=== PATIENT | male | born 1940 | race Caucasian/White ===

== ENCOUNTER → 2016-06-09 | Outpatient (CLI) | payer OTHER ==
[~2016-06-09] MED LIST: ACET1TAB84 PO; CRS10 PO; GEMF600T3 PO; HYD50 PO; LISI-725 PO; NIAC500T11 PO; POTA-335 PO; TRAM-10 PO
[2016-06-09 13:19] LABS: HEMATOCRIT 47.9 % (42-52); MEAN CELL VOLUME 92.1 fL (80-100); MEAN CORPUSCULAR HEMOGLOBIN 31.2 pg (25-34); MEAN CORPUSCULAR HGB CONC 33.8 g/dl (32-36); MEAN PLATELET VOLUME 9.1 fL (7.4-10.4); PLATELET COUNT 253 K/uL (130-400); WHITE BLOOD COUNT 7.11 K/uL (4.8-10.8)
[2016-06-09 13:27] LABS: CALCIUM 9.6 mg/dl (8.5-10.1)
[2016-06-09 13:38] LABS: ALT/SGPT 26 U/L (12-78); AMYLASE 42 U/L (25-115); BLOOD UREA NITROGEN 26 mg/dl (7-18); BUN/CREATININE RATIO 23.8 (10-20); CARBON DIOXIDE 27 mmol/L (21-32); CHLORIDE 108 mmol/L (98-107); GLUCOSE 105 mg/dl (70-99); POTASSIUM 4.2 mmol/L (3.5-5.1); SODIUM 142 mmol/L (136-145)
[2016-06-09 13:44] LABS: ALB/GLOB RATIO 1.2 (0.9-2); ALKALINE PHOSPHATASE 80 U/L (45-117); AST/SGOT 19 U/L (15-37); PROSTATE SPECIFIC ANTIGEN 0.451 ng/ml (0.000-4.000)
== END | disposition home or self-care (01) ==
LOC: C.LABMFLN 12:01
PROVIDERS: ATTEND Family Medicine
DX: M54.6 Pain in thoracic spine (principal); Z12.5 Encounter for screening for malignant neoplasm of prostate

== ENCOUNTER → 2016-07-15 | Outpatient (CLI) | payer OTHER ==
--- NOTE | 2016-07-15 12:02 | DIAGNOSTIC IMAGING REPORT ---
CT SCAN OF THE THORACIC SPINE WITHOUT IV CONTRAST CLINICAL HISTORY: Thoracic back pain. Degenerative disc disease. COMPARISON STUDY: CT scan of the chest dated 12/15/2015. TECHNIQUE: CT scan of the thoracic spine is performed from the lower cervical spine to the upper lumbar spine. Images are reviewed in the axial, sagittal, and coronal planes. IV contrast was not imaged for this examination. CT DOSE: 688.65 mGy.cm FINDINGS: The skeletal structures are osteopenic. There is no evidence of fracture or malalignment involving the thoracic spine. Vertebral body height and alignment are maintained. Tiny anterior osteophytes are seen throughout. The transverse and spinous processes are intact. No lytic or blastic lesions are seen. Fusion hardware is partially imaged in the lower cervical spine. Mild multilevel degenerative disc space narrowing is seen at all levels. There is a large posterior disc-osteophyte complex at T8-T9. This causes moderate to severe central canal stenosis at this level. The minimum AP canal diameter measures 5 mm at this level. Tiny posterior disc-osteophyte complexes are seen at C7-T1, T1-T2, T2-T3, and T6-T7. No significant neural foraminal narrowing is seen throughout the thoracic spine. The paraspinous soft tissues are normal as visualized. There is advanced atherosclerotic calcification of the thoracic aorta. A 5 cm cyst is partially imaged in the upper pole of the right kidney. Subcentimeter left renal cysts are suggested. There is a 2.0 cm nodular lesion partially visualized at the posterior right lung base on image number 351. Additionally, there is a 5 mm right upper lobe nodule seen on image number 131. These lesions were not present on the 12/15/[address] The posterior ribs are intact as imaged. A mildly enlarged mediastinal lymph node measures 12 mm in short axis as seen on image number 144. An enlarged subcarinal node on image number 225 measures 1.7 cm in short axis. IMPRESSION: 1. There is a 2.0 cm nodular lesion partially imaged at the posterior right lung base. Additionally, there is an irregular 5 mm right upper lobe pulmonary nodule. These are new from the 12/15/[address] Although these could be on an infectious/inflammatory basis, neoplasm is the diagnosis of exclusion. Followup with a dedicated chest CT is recommended for further assessment. 2. There are mildly enlarged mediastinal lymph nodes. These are also new from previous. 3. There is no evidence of fracture or malalignment involving the thoracic spine. 4. A large posterior disc-osteophyte complex at T8-T9. This causes moderate to severe central canal stenosis at this level. 5. Mild degenerative change is seen at the remaining thoracic levels. See discussion. Dictated: 07/15/2016 11:21 AM Transcribed: 07/15/2016 12:01 PM [email or web address] Electronically signed by: Fantasma Sousa M.D. 07/15/2016 12:10 PM Dictated Date/Time: 07/15/2016 11:21 AM
== END | disposition home or self-care (01) ==
LOC: C.CTS 10:59
PROVIDERS: ATTEND Family Medicine
DX: M51.34 Other intervertebral disc degeneration, thoracic region (principal); R91.1 Solitary pulmonary nodule; M25.78 Osteophyte, vertebrae; M48.04 Spinal stenosis, thoracic region

== ENCOUNTER → 2016-07-19 | Outpatient (CLI) | payer OTHER ==
[~2016-07-19] MED LIST changes: +OPTIRAY 320 IV PRN
--- NOTE | 2016-07-19 09:42 | DIAGNOSTIC IMAGING REPORT ---
CHEST CT WITH CONTRAST CT DOSE: 433.32 mGy.cm HISTORY: R91.8 Right lower lobe lung [id number] TECHNIQUE: Multiaxial CT images of the chest were performed following the intravenous administration of contrast. COMPARISON: Thoracic spine CT 07/15/2016. Chest CT 12/15/2015. FINDINGS: The central airways are patent. No pleural effusions. No pneumothorax. A 2 mm nodule within the left upper lobe on image 80. Stable 3 mm nodule within the right upper lobe on image 70. Focal round area of peripheral consolidation within the right lower lobe posteriorly. This measures approximately 1.9 cm and is similar to the prior study. This demonstrates a groundglass halo. The central pulmonary arteries are patent. No pleural effusions. No pneumothorax. Mild to moderate calcified plaque within the aortic arch. Normal caliber thoracic aorta. Cholecystectomy. Multiple bilateral renal hypodense lesions consistent with cysts. Stable small nodules within the left adrenal gland. Stable 1 cm hypodense lesion within the left hepatic lobe. This favors a cyst. No fractures within the visualized osseous structures. Partially visualized cervical spinal fusion hardware. Mediastinal lymph nodes have slightly decreased in size. Dominant subcarinal lymph node measures 1.4 cm in short axis diameter. IMPRESSION: 1. No significant change in 1.9 cm focal round area of peripheral consolidation within the right lower lobe posteriorly. This demonstrates a groundglass halo and is new from the [address] This favors a small focus of infectious change/pneumonia. One month chest CT follow up is recommended to exclude a neoplastic process. 2. Improvement in the prominent mediastinal lymph nodes. 3. A few additional subcentimeter nodules within the lungs as described above. These also bear watching on future examinations. Electronically signed by: Gabriel Mckenna M.D. 07/19/2016 9:41 AM Dictated Date/Time: 07/19/2016 9:32 AM
== END | disposition home or self-care (01) ==
LOC: C.CTS 08:57
PROVIDERS: ATTEND Family Medicine
DX: R91.8 Other nonspecific abnormal finding of lung field (principal); R59.1 Generalized enlarged lymph nodes

== ENCOUNTER → 2016-08-15 | Outpatient (CLI) | payer OTHER ==
[~2016-08-15] MED LIST changes: -OPTIRAY 320 IV PRN
--- NOTE | 2016-08-16 08:26 | DIAGNOSTIC IMAGING REPORT ---
PET/CT SKULL-THIGH HISTORY:75 years Malepatient presents with a solitary pulmonary nodule. COMPARISON: Chest CT 07/19/2016, 12/15/2015 TECHNIQUE: The patient was injected with 16.2 mCi of F-18 fluorodeoxyglucose (FDG) and an emission scan was performed from the skull vertex to the toes. Noncontrast CT was performed for attenuation correction and anatomic localization. The blood glucose level was 96 mg/dl. FINDINGS: HEAD AND NECK: There is a mild amount of radiotracer uptake within the soft tissues about the right jaw which is likely inflammatory. CHEST: There is mildly increased radiotracer uptake within a pretracheal lymph node seen on image 68 of series 2 measuring 1.6 x 1.0 cm with SUV max of 2.6. There is an enlarged subcarinal lymph node measuring 2.4 x 1.3 cm on image 84 of the axial series which is markedly FDG avid with SUV max of 7.5. Mildly enlarged precarinal lymph node measuring 1.8 x 1.0 cm demonstrates SUV max of 2.9. Nonenlarged right hilar lymph node demonstrates SUV max of 3.0 on image 84 the axial series. Pleural-based 1.4 x 1.1 cm nodule of the posterior basal segment right lower lobe best seen on image 111 of the axial series is only mildly FDG avid with SUV max of 2.2. On study dated 07/19/2016 this lesion measured 2.2 x 1.5 cm. ABDOMEN AND PELVIS: There is a physiologic distribution of activity within the liver, spleen, adrenal glands, gastrointestinal and urinary tracts, with no hypermetabolic foci. MUSCULOSKELETAL SYSTEM AND EXTREMITIES: There is a physiologic distribution of activity within the bone marrow, with no hypermetabolic foci. Likely inflammatory mild FDG radiotracer uptake is seen within the left infraspinatus musculature. ADDITIONAL CT FINDINGS: Large cysts of the right greater than left kidneys are redemonstrated. There is atherosclerosis of the aorta. Prior cholecystectomy. Prior laminectomy at multiple levels of the lumbar spine. Advanced facet arthropathy is also seen at several levels. Prior anterior fusion of the mid to lower cervical spine. IMPRESSION: 1. Pleural-based noncalcified nodule of the posterior basal segment right lower lobe measures 1.4 x 1.1 cm slightly decreased in size from comparison study dated 07/19/2016 where it measured 2.2 x 1.5 cm and is only mildly FDG avid suggesting resolving infectious or inflammatory etiology. Additional follow-up imaging is needed. 2. Multiple prominent and mildly enlarged hypermetabolic lymph nodes of the mediastinum as above are nonspecific findings and would favor an infectious or inflammatory process, however metastatic disease could present similarly. Attention at follow-up recommended. 3. Additional incidental findings as above. Electronically signed by: Chiki Duenas 08/16/2016 8:24 AM Dictated Date/Time: 08/16/2016 7:51 AM
== END | disposition home or self-care (01) ==
LOC: C.PET 15:43
PROVIDERS: ATTEND Physician Assistant
DX: R91.8 Other nonspecific abnormal finding of lung field (principal); R91.1 Solitary pulmonary nodule; R59.9 Enlarged lymph nodes, unspecified

== ENCOUNTER → 2016-12-20 | Outpatient (CLI) | payer OTHER ==
[2016-12-20 13:13] LABS: CHOLESTEROL/HDL RATIO 5.6; URIC ACID 4.9 mg/dl (2.6-7.2)
[2016-12-20 13:17] LABS: ESTIMATED AVERAGE GLUCOSE 146 mg/dl; HA1C FLAG Normal (Normal)
== END | disposition home or self-care (01) ==
LOC: C.LABMFLN 09:29
PROVIDERS: ATTEND Family Medicine
DX: E78.5 Hyperlipidemia, unspecified (principal); M10.9 Gout, unspecified; E11.9 Type 2 diabetes mellitus without complications

== ENCOUNTER → 2016-12-27 | Outpatient (CLI) | payer OTHER | END | disposition home or self-care (01) | LOC: C.LABMFLN 08:50 | PROVIDERS: ATTEND Family Medicine | DX: E11.9 Type 2 diabetes mellitus without complications (principal); E78.5 Hyperlipidemia, unspecified; M10.9 Gout, unspecified; R19.7 Diarrhea, unspecified ==